=== PATIENT | male | born 1945 | race Two or more races ===

== ENCOUNTER 2025-01-03 14:51 | Emergency (ER) | payer MEDICARE, SELFPAY ==
[2025-01-03 14:52] VITALS: BMI 28.6
[2025-01-03 14:58] VITALS: BP 158/74; PULSE 78; RESP 20; TEMP 36.7; O2SAT 97
--- NOTE | 2025-01-03 15:05 | PD.EDEYE ---
ED Eye Problem RME/HPI General Chief complaint: Eye Problems Stated complaint: FOREIGN BODY IN LEFT EYE Time Seen by Provider: 01/03/25 15:04 Arrival date/time: 01/03/25 14:51 79-year-old male presents the emergency room today stating he was cutting wood on Monday patient reports that dust particles got into his eyes reports irritation of the right eye. Patient reports no disturbances in vision no headache dizziness weakness no trauma Limitations: no limitations Related Data Home Medications ?Medication ?Instructions ?Recorded ?Confirmed lisinopril 20 1 tab PO QDAY 10/01/19 12/27/19 mg-hydrochlorothiazide 25 mg tablet allopurinol 300 mg tablet 300 mg PO DAILY 12/27/19 12/27/19 gabapentin 300 mg capsule 300 mg PO BID 12/27/19 12/27/19 Previous Rx's ?Medication ?Instructions ?Recorded cetirizine 10 mg capsule (Zyrtec) 10 mg PO QDAY PRN allergy symptoms 01/03/25 #30 caps ibuprofen 200 mg tablet (Advil) 400 mg (2 x 200 mg) PO Q6H PRN 01/03/25 pain #20 tabs tobramycin 0.3 % eye drops 2 drp ophthalmic (eye) Q4H 5 days 01/03/25 #5 mL Allergies Allergy/AdvReac Type Severity Reaction Status Date / Time No Known Allergies Allergy Verified 01/03/25 14:54 Review of Systems Review of Systems Systems Reviewed: All systems reviewed, normal except as documented Constitutional Constitutional: Reports system reviewed and no additional complaints, except as documented, Denies fever(s) and Denies headache(s) Eyes Eyes: Reports system reviewed and no additional complaints, except as documented, Denies blind spots, Denies blurry vision, Denies change in vision, Denies eye discharge, Denies dry eyes, Denies exophthalmos, Reports irritation and Reports itchy eyes ENT Ears, Nose, Mouth, and Throat: Reports system reviewed and no additional complaints, except as documented, Denies headache(s), Denies nasal congestion and Denies nasal discharge Cardiovascular Cardiovascular: Reports system reviewed and no additional complaints, except as documented, Denies chest pain and Denies dyspnea Respiratory Respiratory: Reports system reviewed and no additional complaints, except as documented, Denies chest congestion, Denies cough and Denies dyspnea Gastrointestinal Gastrointestinal: Reports system reviewed and no additional complaints, except as documented and Denies abdominal pain Integumentary/Breasts Skin/Breast: Reports system reviewed and no additional complaints, except as documented and Denies rash Neurologic Neurologic: Reports system reviewed and no additional complaints, except as documented, Reports as per HPI and Denies headache(s) Allergic/Immunologic Allergic/Immunologic: Reports itchy eyes Past Medical History Past Medical History CARDIAC: Positive Hypertension; Negative Congestive Heart Failure RESPIRATORY: Negative Chronic Obstructive Pulmonary Disease (COPD) GENITOURINARY: Negative Renal Disease ENT: Positive Cataracts (BILATERAL WITH LENS IMPLANT) ENDOCRINE: Negative Diabetes Mellitus Type 1 or Diabetes Mellitus Type 2 OTHER HISTORY: Positive Hospitalization and Cancer (LEUKEMIA) Social History SMOKING STATUS: Never smoker ED Exam General Limitations: Present no limitations General appearance: Present alert and in no apparent distress Head Head exam: Present atraumatic, normocephalic and normal inspection Eye Eye exam: Present normal appearance, PERRL and EOMI ENT ENT exam: Present normal exam, normal oropharynx and mucous membranes moist Neck Neck exam: Present normal inspection, full ROM and trachea midline Chest Chest inspection: Present normal inspection and symmetric chest wall rise Respiratory Respiratory exam: Present normal lung sounds bilaterally; Absent respiratory distress Cardiovascular Cardiovascular exam: Present regular rate, normal rhythm and normal heart sounds Abdominal Exam Abdominal exam: Present soft and normal bowel sounds Extremities Exam Extremities exam: Present normal inspection and full ROM Back Exam Back exam: Present normal inspection and full ROM Neurological Exam Neurological exam: Present alert, oriented X3 and CN II-XII intact Psychiatric Psychiatric exam: Present normal affect and normal mood Skin Skin exam: Present warm, dry, intact and normal color Course Quality Measures none Orders Category Date Time Status ED Eye Irrigation ONCE Care 01/03/25 15:05 Active Ferrara Lamp to Bedside X1 Care 01/03/25 15:05 Active Fluorescein Sodium [[id number]] Med 01/03/25 15:05 Discontinued 1 mg RIGHT EYE X1 ONE TETRACAINE Op Lilliam 0.5% [Pontocaine Op Lilliam 0.5%] Med 01/03/25 15:05 Discontinued 1 drop RIGHT EYE X1 ONE Vital Signs Vital signs: Vital Signs Temperature 98.0 F 01/03/25 14:58 Pulse Rate 78 01/03/25 14:58 Respiratory Rate 20 01/03/25 14:58 Blood Pressure 158/74 H 01/03/25 14:58 Pulse Oximetry (%) 97 01/03/25 14:58 Oxygen Delivery Method Room Air 01/03/25 14:58 O2 saturation 97% room air within normal limits Procedures -ED Ferrara Lamp Exam Right eye: Flourescein uptake:: Yes Ferrara Lamp Findings: Corneal abrasion Eye MDM Narrative MDM Narrative:: 79-year-old male presents the emergency room today stating he was cutting wood on Monday patient reports that dust particles got into his eyes reports irritation of the right eye. Patient reports no disturbances in vision no headache dizziness weakness no trauma On exam patient well-appearing patient does not appear ill or toxic There is no conjunctival injection no hyphema pupils normal Patient reports no disturbances in vision Right eye is irrigated on exam patient has: Abrasion right eye small foreign body which was removed with irrigation Patient instructed to follow-up with eye doctor soon as possible for worsening symptoms return immediately Patient data External records reviewed:: [facility] previous records Clinical information provided by:: patient Social determinants that could affect healthcare access:: none Patient has the following chronic illnesses:: see history How is presenting disease/condition affected by chronic disease/condition?: uneffected by Evaluation data The following diagnostics were reviewed and interpreted by me:: other (specify) (N/A) Lab and/or radiology exams considered but not ordered:: Consider not ordered Interpretation Summary: N/A Medications / Prescriptions Medications or Prescriptions considered but not ordered:: Given Medication administrations:: Medication Administration History Discontinued Medications Fluorescein Sodium (Fluorescein Sod 1 Mg Strp) 1 mg RIGHT EYE X1 ONE Stop: 01/03/25 15:06 Tetracaine HCl (Tetracaine Pf Op Lilliam 0.5% 4 Ml Drpette) 1 drop RIGHT EYE X1 ONE Stop: 01/03/25 15:06 Given Consultations Consultation(s) initiated? (list below): No Diagnosis Eye Problem Differential Diagnosis: corneal abrasion, conjunctivitis and corneal ulcer Most likely diagnosis given after review of the tests above:: Corneal abrasion Admission Indicated Admission indicated?: not indicated Admission Request Was there a request for admission?: No Disposition Plan Disposition Plan: Discharge Discharge Attestation Discharge Attestation: The patient and all family members were given an opportunity to ask questions and understood the discharge instructions. Discharge instructions specifically effects, indications for sooner follow up or return to the emergency department, and the expected course of current diagnosis. Patient condition: Stable Discharge Plan Plan Patient Disposition: HOME (Self Care) Disposition Comment: Stable Prescriptions/Referrals Prescriptions/Med Rec: New tobramycin 0.3 % drops 2 drp ophthalmic (eye) Q4H 5 Days Qty: 5 0RF Zyrtec 10 mg capsule 10 mg PO QDAY PRN (Reason: allergy symptoms) Qty: 30 0RF ibuprofen [Advil] 200 mg tablet 400 mg PO Q6H PRN (Reason: pain) Qty: 20 0RF No Action lisinopril-hydrochlorothiazide 20-25 mg Tablet 1 tab PO QDAY gabapentin 300 mg Capsule 300 mg PO BID Rx Instructions: 1 PO IN AM, 2 PO IN PM allopurinol 300 mg Tablet 300 mg PO DAILY Problem List Clinical Impression: Abrasion, corneal Patient/Caregiver Discharge Instructions Education Materials: Corneal Injury Additional Instructions: Please follow up with your primary care doctor in the next 24-48hrs for any worsening symptoms return here immediately Print Language: Kyrgyz Stand Alone Forms: Sherri Award Info., Patient Portal Info Letter PA/ALL TERRAIN VEHICLE RACER Supervising Physician PA/ALL TERRAIN VEHICLE RACER Supervising Physician: Dr. miranda
[2025-01-03] MEDS: FLUORESCEIN SOD 1 MG STRP RIGHT EYE (15:30)
[2025-01-03] MEDS: TETRACAINE PF OP SOL 0.5% 4 ML DRPETTE 1 DROP RIGHT EYE (15:30)
== END 2025-01-03 16:38 | disposition home or self-care (01) ==
LOC: SERX 15:54
PROVIDERS: Emergency Provider Emergency Medicine
DX: T15.01XA Foreign body in cornea, right eye, initial encounter (principal); X58.XXXA Exposure to other specified factors, initial encounter
CPT/HCPCS: 65205; 99283

== ENCOUNTER 2025-08-18 17:03 | Emergency (ER) | payer MEDICARE, MEDICAID, SELFPAY ==
[2025-08-18 17:04] VITALS: BMI 29.1
[2025-08-18 18:25] VITALS: BP 197/99; PULSE 79; RESP 18; TEMP 36.7; O2SAT 98
--- NOTE | 2025-08-18 18:30 | XR_ITS ---
Examination: CT brain head without contrast. 2-D sagittal coronal reconstructions Date and time of exam: August 18, 2025, 1907 hours INDICATIONS: Ground-level fall today with injury to the head, head pain CTDI: vol (mGy): 50.4 DLP: (mGycm): 1032 Technique: Multiple CT axial sections of the brain have been obtained, 5 mm slice thickness. Contrast has not been administered. 2-D sagittal, coronal reconstructions have been obtained Low dose protocols were performed. One or more of the following dose reduction techniques were used; automated exposure control, adjustment of the mA and/or KV according to patient size, use of iterative reconstruction technique. Findings: No significant ventricular enlargement. Intra-axial or extra-axial hemorrhage density is not seen. No mass effect or midline shift Basal cisterns are not remarkable. Fourth ventricle is midline. Cranial vault intact. Impression: Negative for acute hemorrhage, mass effect or midline shift
--- NOTE | 2025-08-18 18:30 | XR_ITS ---
Examination: CT maxillofacial, without intravenous contrast. 2-D sagittal reconstructions. 3-D reconstructions. Date and time of exam: August 18, 2025, 1707 hours INDICATIONS: Ground-level fall today with injury to the face, facial pain CTDI: vol (mGy): 18.4 DLP: (mGycm): 381 Technique: Multiple axial images of maxillofacial region, 3.0 mm slice thickness. 2-D sagittal and coronal reconstructions. 3-D reconstructions. Low dose protocols were performed. One or more of the following dose reduction techniques were used; automated exposure control, adjustment of the mA and/or KV according to patient size, use of iterative reconstruction technique. Findings: Frontal bone frontal sinuses intact Orbital rims intact Extensive maxillary sinus disease No nasal bone fractures No depression zygomatic arches Pterygoid plates maxilla and the mandible intact Maxillary dental caries Soft tissue contusion anterior to the right maxillary antrum and below the right optic globe Optic globes are intact IMPRESSION: No acute facial fracture.
--- NOTE | 2025-08-18 18:31 | PD.EDRME ---
Rapid Medical Screening Exam RME Arrival date/time: 08/18/25 17:03 79-year-old male presents with trauma to the face after falling onto a dresser this afternoon Chief Complaint: Fall Time Seen by Provider: 08/18/25 17:32 Vital signs: Vital Signs Temperature 98.1 F 08/18/25 18:25 Pulse Rate 79 08/18/25 18:25 Respiratory Rate 18 08/18/25 18:25 Blood Pressure 197/99 H 08/18/25 18:25 Pulse Oximetry (%) 98 08/18/25 18:25 Oxygen Delivery Method Room Air 08/18/25 18:25 Exam: 0 Clinical Impression: 0
--- NOTE | 2025-08-18 21:59 | PD.EDADULT ---
ED General RME/HPI General Chief complaint: Fall Stated complaint: fall Time Seen by Provider: 08/18/25 17:32 Arrival date/time: 08/18/25 17:03 CC: Right face pain HPI patient fell after losing his balance on uneven floor striking his face on a dresser of sorts. Patient denies LOC or LOC is not on any blood thinners. Patient states that initially had bleeding from his face but is now stopped. Patient is awake alert oriented nontoxic-appearing not in any acute distress with no focal deficits. RME / HPI RME / HPI narrative: 08/18/25 17:03 79-year-old male presents with trauma to the face after falling onto a dresser this afternoon Exam: 0 Impression: 0 Related Data Home Medications ?Medication ?Instructions ?Recorded ?Confirmed lisinopril 20 1 tab PO QDAY 10/01/19 12/27/19 mg-hydrochlorothiazide 25 mg tablet allopurinol 300 mg tablet 300 mg PO DAILY 12/27/19 12/27/19 gabapentin 300 mg capsule 300 mg PO BID 12/27/19 12/27/19 Previous Rx's ?Medication ?Instructions ?Recorded cetirizine 10 mg capsule (Zyrtec) 10 mg PO QDAY PRN allergy symptoms 01/03/25 #30 caps ibuprofen 200 mg tablet (Advil) 400 mg (2 x 200 mg) PO Q6H PRN 01/03/25 pain #20 tabs meloxicam 7.5 mg tablet 7.5 mg PO QDAY #10 tabs 08/18/25 Allergies Allergy/AdvReac Type Severity Reaction Status Date / Time No Known Allergies Allergy Verified 08/18/25 17:06 Review of Systems Review of Systems Narrative Review of Systems: GEN: No fever, no chills, no weight loss EYES: No discharge, no visual changes, no pain HEENT: No ear pain, no congestion, no sore throat PULM: No shortness of breath, no cough, no congestion CV: No chest pain, no dyspnea on exertion, no palpitations GI: No nausea, no vomiting, no diarrhea, no pain, no constipation : No frequency, no urgency, no dysuria MUSC/SKEL: No joint pain, no back pain SKIN: No rash PSYCH: No hallucinations, no depression HEME/LYMPH: No easy bleeding or bruising tendencies NEURO: No weakness, no headache Past Medical History Past Medical History CARDIAC: Positive Hypertension; Negative Congestive Heart Failure RESPIRATORY: Negative Chronic Obstructive Pulmonary Disease (COPD) GENITOURINARY: Negative Renal Disease ENT: Positive Cataracts (BILATERAL WITH LENS IMPLANT) ENDOCRINE: Negative Diabetes Mellitus Type 1 or Diabetes Mellitus Type 2 OTHER HISTORY: Positive Hospitalization and Cancer (LEUKEMIA) Social History SMOKING STATUS: Never smoker ED Exam Narrative Physical exam: [General: Mild discomfort but not in any acute distress Head normocephalic no step-offs hematoma induration ulceration or depressions. HEENT: Eyes pupils are PERRLA EOMs are intact no entrapment. Face: The patient has right lower eyelid ecchymosis with edema. There is a small puncture wound but the bleeding is stopped in the right cheek just lateral to the bridge of the nose. No active bleeding. Is not boggy or tender. There is no epistaxis. Smile is symmetrical no step-off in the upper mandible or lower mandible no pops or clicks with palpation of the TMJ during mastication. Swallow symmetrical phonation is normal. No raccoon's eyes or Jha sign. All other subsystems of HEENT are within acceptable limits Neck is supple nontender no JVD no edema Chest equal chest rise nontender to palpation Respiratory: Clear to auscultation no wheezes crackles or rubs CV: Rate rhythm is regular no murmurs rubs or clicks Back: No CVA tenderness no spinous process tenderness from cervical spine thoracic and lumbar spine Skin: Intact no petechiae rash induration ulceration or crepitus Extremities: Moving all extremity against resistance cap refill less than 2 seconds neurosensory intact. Observed ambulating without complication. Neuro: Awake alert oriented x3 Glascow coma 15 no focal deficits] Course Quality Measures none Orders Category Date Time Status CT facial bones wo con Stat Exams 08/18/25 18:[address] head/brain wo con Stat Exams 08/18/25 18:30 Completed oxyCODONE/APAP 5/325 [Percocet 5/325] Med 08/18/25 21:59 Once 1 tab PO X1 ONE Vital Signs Vital signs: Vital Signs Temperature 98.1 F 08/18/25 18:25 Pulse Rate 79 08/18/25 18:25 Respiratory Rate 18 08/18/25 18:25 Blood Pressure 197/99 H 08/18/25 18:25 Pulse Oximetry (%) 98 08/18/25 18:25 Oxygen Delivery Method Room Air 08/18/25 18:25 Discharge Plan Plan Patient Disposition: HOME (Self Care) Patient condition on transfer: Stable Prescriptions/Referrals Prescriptions/Med Rec: New meloxicam 7.5 mg tablet 7.5 mg PO QDAY Qty: 10 0RF No Action lisinopril-hydrochlorothiazide 20-25 mg Tablet 1 tab PO QDAY gabapentin 300 mg Capsule 300 mg PO BID Rx Instructions: 1 PO IN AM, 2 PO IN PM allopurinol 300 mg Tablet 300 mg PO DAILY Zyrtec 10 mg capsule 10 mg PO QDAY PRN (Reason: allergy symptoms) Qty: 30 0RF ibuprofen [Advil] 200 mg tablet 400 mg PO Q6H PRN (Reason: pain) Qty: 20 0RF Referrals: Earle Reynolds MD [Primary Care Provider, Family Practice] - In 1 week Problem List Clinical Impression: Fall, Contusion of face, Puncture wound of face Patient/Caregiver Discharge Instructions Other Activity Instructions:: If you experience blurred vision impaired nausea vomiting or altered mentation return the emergency room for reevaluation. Education Materials: ED Facial Contusion Print Language: Mauritian Stand Alone Forms: Sherri Award Info., Patient Portal Info Letter PA/BORING MACHINE SET UP OPERATOR Supervising Physician PA/BORING MACHINE SET UP OPERATOR Supervising Physician: Lavell Khan ENP [facility] Clinical Information Provided by: patient Medical Records reviewed [facility] Meds/Rx considered, not ordered None Labs/Rad/Tests considered, not ordered None Chronic Illness/Social Conditions which may negatively complicate care or outcome(s)-explain: None or not applicable EKG EKG not done Labs Labs: none Imaging Imaging interpretation: interpreted by me Imaging Interpretation(s): CT head and face are negative for any acute finding requires emergent or immediate intervention. Medication Administration(s) Medication Administration History Oxycodone/Acetaminophen (Oxycodone/Apap 5/325 Tablet) 1 tab PO X1 ONE Stop: 08/18/25 22:00
== END 2025-08-18 22:16 | disposition home or self-care (01) ==
PROVIDERS: Emergency Provider Emergency Medicine; PCP Family Medicine
DX: S01.431A Puncture wound without foreign body of right cheek and temporomandibular area, initial encounter (principal); S09.90XA Unspecified injury of head, initial encounter; W01.198A Fall on same level from slipping, tripping and stumbling with subsequent striking against other object, initial encounter
CPT/HCPCS: 70450; 70486; 99282; A9270